=== PATIENT | male | born 1950 | race Asian ===

== ENCOUNTER 2018-02-28 13:58 | Day surgery (SDC) | payer OTHER ==
[2018-02-28] MEDS ORDERED: LACTATED RINGERS 1,000 ML IV ONE (14:51)
[2018-02-28] MEDS ORDERED: SIMETHICONE 40 MG/0.6 ML 30 ML BOTTLE PO ONE (15:49)
[2018-02-28] MEDS ORDERED: SODIUM CHLORIDE 0.9% 0 ML ONE (15:58)
[2018-02-28] MEDS ORDERED: fentaNYL 250 MCG/5 ML VIAL IVP ONE (15:59)
[2018-02-28] MEDS ORDERED: MIDAZOLAM 2 MG/2 ML VIAL IVP ONE (15:59)
[2018-02-28 16:34] VITALS: BP 113/79
== END 2018-02-28 13:59 | disposition home or self-care (01) ==
LOC: SDS 13:58
PROVIDERS: ATTEND Internal Medicine
PROC: 0DBL8ZZ Excision of Transverse Colon, Via Natural or Artificial Opening Endoscopic (ICD-10-PCS; 2018-02-28)
PROC: 3E0H8GC Introduction of Other Therapeutic Substance into Lower GI, Via Natural or Artificial Opening Endoscopic (ICD-10-PCS; principal; 2018-02-28 15:00)
DX: Z12.11 Encounter for screening for malignant neoplasm of colon (principal); D12.3 Benign neoplasm of transverse colon; K64.8 Other hemorrhoids; Q27.33 Arteriovenous malformation of digestive system vessel
CPT/HCPCS: 45381; 45385; A9270; J3010; J7120

== ENCOUNTER 2020-07-16 07:19 | Outpatient (CLI) | payer MEDICARE, MEDICAID ==
[2020-07-16 08:08] LABS: % IRON SATURATION 47 % (20-50); IRON 123 ug/dL (45-182); TOTAL IRON BINDING CAPACITY 259 ug/dL (250-450); TRANSFERRIN 185 mg/dL (180-329)
== END 2020-07-16 07:20 | disposition home or self-care (01) ==
LOC: LAB 07:19
PROVIDERS: ATTEND Psychiatry & Neurology Neurology
DX: E55.9 Vitamin D deficiency, unspecified (principal); E61.1 Iron deficiency; R79.89 Other specified abnormal findings of blood chemistry; E53.8 Deficiency of other specified B group vitamins
CPT/HCPCS: 36415; 82607; 82652; 82728; 83540; 84466